=== PATIENT | female | born 1985 | race Caucasian/White ===

== ENCOUNTER → 2020-12-23 08:42 | Outpatient (CLI) | payer SELFPAY ==
--- NOTE | 2020-12-23 08:55 | ART_ITS ---
Reason For Study: Claudication, PAD Procedure A bilateral lower extremity continuous wave Doppler with analog waveform analysis,segmental pressures,and ankle brachial indexes with exercise. Left Segmental Pressures Left brachial= 123mmHg. Left posterior tibial artery = 162mmHg. Left dorsalis pedis artery = 149mmHg. Left digit = 101 mmHg. The left dorsalis pedis waveforms are triphasic. The left posterior tibial artery waveforms are triphasic. Right Segmental Pressures Right brachial= 127mmHg. Right posterior tibial artery = 155mmHg. Right dorsalis pedis artery = 142mmHg. Right digit = 100 mmHg. The right dorsalis pedis waveforms are triphasic. The right posterior tibial artery waveforms are triphasic. Indices The right ankle brachial index by the dorsalis pedis is 1.12. The right ankle brachial index by the posterior tibial artery is 1.22. The right post exercise ankle brachial index is 1.30. The right digital-brachial index is 0.79. The left ankle brachial index by the dorsalis pedis is 1.17. The left ankle brachial index by the posterior tibial artery is 1.28. The left post exercise ankle brachial index is 1.29. The left digital-brachial index is 0.80. Interpretation Summary Triphasic Doppler waveforms are noted at ankle level bilaterally. Pulse-volume recording waveform amplitudes are diminished at digital level bilaterally, but satisfactory at all other levels bilaterally. Resting ankle-brachial indices are normal bilaterally. Digital-brachial indices are normal bilaterally. The patient was exercised on a treadmill for 5 minutes at 3 MPH and a 5% grade. Ankle pressures were noted to augment bilaterally one minute following cessation of exercise, a normal physiological response. There is no evidence of significant arterial occlusive disease in the lower extremities bilaterally. Ordering Physician: Bull Ha Referring Physician: Celnie Sanchez Performed By: Jaky Desir RVT
== END ==
PROVIDERS: PCP Family Medicine; Referring Provider Surgery; Visit Provider Surgery
DX: I73.9 Peripheral vascular disease, unspecified (principal)
CPT/HCPCS: 93924

== ENCOUNTER → 2021-01-23 14:05 | Outpatient (CLI) | payer SELFPAY | PROVIDERS: PCP Family Medicine; Referring Provider Surgery; Visit Provider Surgery | DX: Z01.812 Encounter for preprocedural laboratory examination (principal) | CPT/HCPCS: 87635; C9803; U0002 ==